=== PATIENT | male | born 1995 | race Caucasian/White ===

== ENCOUNTER 2019-02-28 20:09 | Emergency (ER) | payer OTHER ==
[2019-02-28 20:20] VITALS: BP 122/69; PULSE 70; RESP 18; TEMP 98.6
--- NOTE | 2019-02-28 20:45 | XR ---
EXAMINATION TYPE: XR knee complete LT DATE OF EXAM: 02/28/2019 COMPARISON: NONE HISTORY: Knee pain TECHNIQUE: 3 views FINDINGS: I see no fracture nor dislocation. Joint spaces are normal. There is no sign of a knee join t effusion. IMPRESSION: Negative left knee exam.
--- NOTE | 2019-02-28 21:08 | ED ---
General Adult HPI - General Chief complaint: Extremity Injury, Lower Stated complaint: Lft Knee Injury Time Seen by Provider: 02/28/19 20:23 Source: patient Mode of arrival: ambulatory - History of Present Illness Initial comments: Patient is a 23-year-old male presents emergency Department with left knee pain. Patient reports yesterday he was pulling a piece of metal when he slipped on the grass and the metal hit the medial aspect of his left knee. Patient reports tenderness in the medial aspect of the knee but denies any numbness or tingling. She has full range of motion although pain is exacerbated with knee flexion. Patient reports the pain has improved since yesterday but is still persistent. Patient reports the pain is a 2 and constant. She denies taking medication to alleviate the pain. Review of Systems ROS Statement: Those systems with pertinent positive or pertinent negative responses have been documented in the HPI. ROS Other: All systems not noted in ROS Statement are negative. Past Medical History Additional Past Medical History / Comment(s): denies Additional Past Surgical History / Comment(s): denies Past Psychological History: No Psychological Hx Reported Smoking Status: Never smoker Past Alcohol Use History: None Reported, Occasional Past Drug Use History: None Reported General Exam - General Exam Comments Initial Comments: General: Well-developed well-nourished distress HEENT: Normocephalic/atraumatic, PERLL, pharynx erythema, swallowing well, EAC no erythema, no exudates, TM clear, no cervical lymph nodes Neck: Supple, nontender, trachea midline Chest/Lungs: Normal respirations, no signs of respiratory distress clear to auscultation bilaterally no wheezes, rales, rhonchi Cardiac: Regular rate and rhythm, normal S1-S2, no murmurs rubs or gallops Abdomen/GI: Soft nontender, bowel sounds equal or quadrant x4, no guarding, no rebound no CVA tenderness Musculoskeletal: Mild tenderness on the medial aspect of the left knee with palpation. Pain with knee flexion, full range of motion, no edema, strength equal bilaterally, +2 dorsalis pedis and posterior tibialis, bilaterally. Skin: Warmth, no rashes or lesions, no cyanosis or diaphoresis Neurologic: AAO x 3, CN 2-12 intact, Psychiatric: Mood and affect normal, judgment normal Course Vital Signs 02/28/19 20:17 Temperature 98.6 F Pulse Rate 70 Respiratory 18 Rate Blood Pressure 122/69 O2 Sat by Pulse 98 Oximetry Medical Decision Making - Medical Decision Making Patient is a 23-year-old male presents emergency Department with left knee pain. X-ray of the left knee is negative for acute fracture or dislocations. At this point I suspect the patient has suffered soft tissue injury to the medial aspect of the left knee patient advised to alternate between Tylenol and ibuprofen for pain control. Patient advised to obtain a knee brace. Patient advised to use cold compress to minimize swelling. Case discussed with physician. Disposition Clinical Impression: Knee contusion Disposition: HOME SELF-CARE Condition: Stable Instructions (If sedation given, give patient instructions): Knee Sprain (ED) Additional Instructions: Please wear a brace on left knee. Alternate between Tylenol and ibuprofen for pain control. Please follow with orthopedics. Please return to emergency department if symptoms worsen. Is patient prescribed a controlled substance at d/c from ED?: No Referrals: Alex Coe MD [Primary Care Provider] - 1-2 days Apolinar Villalobos DO [Doctor of Osteopathic Medicine] - 1-2 days Time of Disposition: 21:07
== END 2019-02-28 21:17 | disposition home or self-care (01) ==
LOC: EC 20:09
DX: S80.02XA Contusion of left knee, initial encounter (principal); W01.198A Fall on same level from slipping, tripping and stumbling with subsequent striking against other object, initial encounter; Y93.89 Activity, other specified
CPT/HCPCS: 99283

== ENCOUNTER → 2019-05-16 | Outpatient (CLI) | payer OTHER ==
[2019-05-16 15:03] LABS: Basophils % (A) 1 %; Eosinophils # (A) 0.2 k/uL (0-0.7); Eosinophils % (A) 5 %; HGB 16.3 gm/dL (13.0-17.5); Lymphocytes # (A) 1.9 k/uL (1.0-4.8); Lymphocytes % (A) 40 %; MCH 29.1 pg (25.0-35.0); MCV 85.5 fL (80.0-100.0); Mean Platelet Volume 6.7; Monocytes # (A) 0.3 k/uL (0-1.0); Monocytes % (A) 6 %; Neutrophils # (A) 2.2 k/uL (1.3-7.7); Neutrophils % (A) 46 %; Platelet Count 250 k/uL (150-450); RBC 5.62 m/uL (4.30-5.90); RDW 14.3 % (11.5-15.5); WBC 4.8 k/uL (3.8-10.6)
[2019-05-16 18:43] LABS: ALT 29 U/L (10-49); AST 29 U/L (14-35); African American GFR (CKD) 124.1 (60.0-200.0); Calcium 9.9 mg/dL (8.7-10.3); Carbon Dioxide 27.6 mmol/L (21.6-31.8); Chloride 104 mmol/L (96-109); Chol/HDL Ratio 3.14; Cholesterol 160 mg/dL (0-200); Glucose 85 mg/dL (70-110); Potassium 4.5 mmol/L (3.5-5.5); Sodium 138 mmol/L (135-145); Triglycerides <50.0 mg/dL (0.0-149.0); VLDL Calculation 9.98 mg/dL (5.00-40.00)
== END | disposition home or self-care (01) ==
LOC: LABWHC1 13:52
PROVIDERS: ATTEND Family Medicine
DX: Z00.00 Encounter for general adult medical examination without abnormal findings (principal)
CPT/HCPCS: 36415; 80048; 80061; 84439; 84443; 84450; 84460; 85025; 86800

== ENCOUNTER 2023-01-07 14:00 | Emergency (ER) | payer BC, OTHER ==
[2023-01-07 14:13] VITALS: BP 112/68; PULSE 73; RESP 16; TEMP 97.9
[2023-01-07 14:42] LABS: Appearance,Urine Clear (Clear); Bilirubin,Urine Negative (Negative); Blood,Urine Negative (Negative); Color,Urine Yellow; Glucose,Urine (UA) Negative (Negative); Ketones,Urine Negative (Negative); Leukocyte Esterase,Urine Negative (Negative); Nitrite,Urine Negative (Negative); PH, Urine 6.5 (5.0-8.0); Protein,Urine Negative (Negative); Specific Gravity,Urine 1.019 (1.001-1.035); Urobilinogen,Urine <2.0 mg/dL (<2.0)
[2023-01-07 14:47] LABS: African American GFR (CKD) >90 (>60 ml/min/1.73 sqM); Anion Gap 10 mmol/L; Blood Urea Nitrogen 14 mg/dL (9-20); Calcium 9.9 mg/dL (8.4-10.2); Carbon Dioxide 30 mmol/L (22-30); Chloride 100 mmol/L (98-107); Glucose 89 mg/dL (74-99); Non-African American GFR(CKD) >90 (>60 ml/min/1.73 sqM); Potassium 4.5 mmol/L (3.5-5.1); Prothrombin Time 10.3 sec (9.0-12.0); Sodium 140 mmol/L (137-145)
[2023-01-07 14:57] LABS: Basophils % (A) 1 %; Eosinophils # (A) 0.2 k/uL (0-0.7); Eosinophils % (A) 4 %; HCT 46.2 % (39.0-53.0); HGB 16.2 gm/dL (13.0-17.5); Lymphocytes # (A) 2.2 k/uL (1.0-4.8); Lymphocytes % (A) 37 %; MCV 82.9 fL (80.0-100.0); Mean Platelet Volume 6.7; Monocytes # (A) 0.4 k/uL (0-1.0); Monocytes % (A) 6 %; Neutrophils # (A) 2.9 k/uL (1.3-7.7); Neutrophils % (A) 50 %; Platelet Count 304 k/uL (150-450); RBC 5.57 m/uL (4.30-5.90); RDW 12.4 % (11.5-15.5); WBC 5.8 k/uL (3.8-10.6)
--- NOTE | 2023-01-07 15:17 | XR ---
EXAMINATION TYPE: XR chest 1V DATE OF EXAM: 01/07/2023 COMPARISON: None INDICATION: Presurgical clearance TECHNIQUE: Single frontal view of the chest is obtained. FINDINGS: The heart size is normal. The pulmonary vasculature is normal. The lungs are clear. IMPRESSION: 1. No acute pulmonary process.
--- NOTE | 2023-01-07 15:18 | ED ---
General Adult HPI - General Chief complaint: Recheck/Abnormal Lab/Rx Stated complaint: BLOODWORK Time Seen by Provider: 01/07/23 14:19 Source: patient Mode of arrival: ambulatory Limitations: no limitations - History of Present Illness Initial comments: Patient is a 27-year-old male requesting lab work for surgery clearance. Patient has surgery scheduled with Dr. Hope for Sunday. Patient does not have a PCP. He states that he went to the outpatient lab to have labs drawn however they were closed and directed him here to the ER. He has no complaints at this time. - Related Data Allergies Allergy/AdvReac Type Severity Reaction Status Date / Time No Known Allergies Allergy Verified 01/07/23 14:13 Review of Systems ROS Statement: Those systems with pertinent positive or pertinent negative responses have been documented in the HPI. ROS Other: All systems not noted in ROS Statement are negative. Past Medical History Additional Past Medical History / Comment(s): chronic back pain Past Surgical History: No Surgical Hx Reported Additional Past Surgical History / Comment(s): denies Past Psychological History: No Psychological Hx Reported Smoking Status: Never smoker Past Alcohol Use History: None Reported, Occasional Past Drug Use History: None Reported General Exam Limitations: no limitations General appearance: alert, in no apparent distress Head exam: Present: atraumatic, normocephalic, normal inspection Eye exam: Present: normal appearance, EOMI. Absent: scleral icterus, periorbital swelling Neck exam: Present: normal inspection, full ROM Respiratory exam: Absent: respiratory distress Extremities exam: Present: normal inspection Neurological exam: Present: alert, oriented X3, CN II-XII intact Psychiatric exam: Present: normal affect, normal mood Skin exam: Present: warm, dry, intact, normal color. Absent: rash Course Vital Signs 01/07/23 14:11 Temperature 97.9 F Pulse Rate 73 Respiratory 16 Rate Blood Pressure 112/68 O2 Sat by Pulse 98 Oximetry Medical Decision Making - Medical Decision Making Was pt. sent in by a medical professional or institution ([facility], [employer] [facility], urgent care, hospital, or long term...) When possible be specific @ -No Did you speak to anyone other than the patient for history (EMS, parent, family, police, friend...)? What history was obtained from this source @ -No Did you review nursing and triage notes (agree or disagree)? Why? @ -I reviewed and agree with nursing and triage notes Were old charts reviewed (outside hosp., previous admission, EMS record, old EKG, old radiological studies, urgent care reports/EKG's, long term records)? Report findings @ -No old charts were reviewed Differential Diagnosis (chest pain, altered mental status, abdominal pain women, abdominal pain men, vaginal bleeding, weakness, fever, dyspnea, syncope, headache, dizziness, GI bleed, back pain, seizure, CVA, palpatations, mental health, musculoskeletal)? @ -not applicable EKG interpreted by me (3pts min.). @ -As above X-rays interpreted by me (1pt min.). @ -None done CT interpreted by me (1pt min.). @ -None done U/S interpreted by me (1pt. min.). @ -None done What testing was considered but not performed or refused? (CT, X-rays, U/S, labs)? Why? @ -None What meds were considered but not given or refused? Why? @ -None Did you discuss the management of the patient with other professionals (professionals i.e. , PA, [employer], lab, RT, psych nurse, medical social consultant, mine engineering supervisor, teacher, information assurance officer, supervisor case loading)? Give summary @ -No Was smoking cessation discussed for >3mins.? @ -No Was critical care preformed (if so, how long)? @ -No Were there social determinants of health that impacted care today? How? (Homelessness, low income, unemployed, alcoholism, drug addiction, transportation, low edu. Level, literacy, decrease access to med. care, prison, rehab)? @ -No Was there de-escalation of care discussed even if they declined (Discuss DNR or withdrawal of care, Hospice)? DNR status @ -No What co-morbidities impacted this encounter? (DM, HTN, Smoking, COPD, CAD, Cancer, CVA, ARF, Chemo, Hep., AIDS, mental health diagnosis, sleep apnea, morbid obesity)? @ -None Was patient admitted / discharged? Hospital course, mention meds given and route, prescriptions, significant lab abnormalities, going to OR and other pertinent info. @ -Patient is a 27-year-old male presenting requesting pre-op lab work. He has no complaints. Patient [facility] CBC, coags, BMP, and urine are unremarkable. Chest x-ray shows no acute process. Patient was instructed to follow-up with his surgeon. He is agreeable with this plan. I discussed this case with my attending Dr. Shaw Undiagnosed new problem with uncertain prognosis? @ -No Drug Therapy requiring intensive monitoring for toxicity (Heparin, Nitro, Insulin, Cardizem)? @ -No Were any procedures done? @ -No Diagnosis/symptom? @ -encounter for lab work Acute, or Chronic, or Acute on Chronic? @ -Acute Uncomplicated (without systemic symptoms) or Complicated (systemic symptoms)? @ -Uncomplicated Side effects of treatment? @ -No Exacerbation, Progression, or Severe Exacerbation? @ -No Poses a threat to life or bodily function? How? (Chest pain, [place], [place], pneumonia, PE, COPD, DKA, ARF, appy, cholecystitis, CVA, Diverticulitis, Homicidal, Suicidal, threat to staff... and all critical care pts) @ -No - Lab Data Result diagrams: 01/07/23 14:28 01/07/23 14:28 Lab Results 01/07/23 01/07/23 01/07/23 Range/Units 14:28 14:28 14:28 WBC 5.8 (3.8-10.6) k/uL RBC 5.57 (4.30-5.90) m/uL Hgb 16.2 (13.0-17.5) gm/dL Hct 46.2 (39.0-53.0) % MCV 82.9 (80.0-100.0) fL MCH 29.0 (25.0-35.0) pg MCHC 35.0 (31.0-37.0) g/dL RDW 12.4 (11.5-15.5) % Plt Count 304 (150-450) k/uL MPV 6.7 Neutrophils % 50 % Lymphocytes % 37 % Monocytes % 6 % Eosinophils % 4 % Basophils % 1 % Neutrophils # 2.9 (1.3-7.7) k/uL Lymphocytes # 2.2 (1.0-4.8) k/uL Monocytes # 0.4 (0-1.0) k/uL Eosinophils # 0.2 (0-0.7) k/uL Basophils # 0.0 (0-0.2) k/uL PT 10.3 (9.0-12.0) sec INR 1.0 (<1.2) APTT 25.0 (22.0-30.0) sec Sodium (137-145) mmol/L Potassium (3.5-5.1) mmol/L Chloride (98-107) mmol/L Carbon Dioxide (22-30) mmol/L Anion Gap mmol/L BUN (9-20) mg/dL Creatinine (0.66-1.25) mg/dL Est GFR (CKD-EPI)AfAm (>60 ml/min/1.73 sqM) Est GFR (CKD-EPI)NonAf (>60 ml/min/1.73 sqM) Glucose (74-99) mg/dL Calcium (8.4-10.2) mg/dL Urine Color Yellow Urine Appearance Clear (Clear) Urine pH 6.5 (5.0-8.0) Ur Specific [place] 1.019 (1.001-1.035) Urine Protein Negative (Negative) Urine Glucose (UA) Negative (Negative) Urine Ketones Negative (Negative) Urine Blood Negative (Negative) Urine Nitrite Negative (Negative) Urine Bilirubin Negative (Negative) Urine Urobilinogen <2.0 (<2.0) mg/dL Ur Leukocyte Esterase Negative (Negative) 01/07/23 Range/Units 14:28 WBC (3.8-10.6) k/uL RBC (4.30-5.90) m/uL Hgb (13.0-17.5) gm/dL Hct (39.0-53.0) % MCV (80.0-100.0) fL MCH (25.0-35.0) pg MCHC (31.0-37.0) g/dL RDW (11.5-15.5) % Plt Count (150-450) k/uL MPV Neutrophils % % Lymphocytes % % Monocytes % % Eosinophils % % Basophils % % Neutrophils # (1.3-7.7) k/uL Lymphocytes # (1.0-4.8) k/uL Monocytes # (0-1.0) k/uL Eosinophils # (0-0.7) k/uL Basophils # (0-0.2) k/uL PT (9.0-12.0) sec INR (<1.2) APTT (22.0-30.0) sec Sodium 140 (137-145) mmol/L Potassium 4.5 (3.5-5.1) mmol/L Chloride 100 (98-107) mmol/L Carbon Dioxide 30 (22-30) mmol/L Anion Gap 10 mmol/L BUN 14 (9-20) mg/dL Creatinine 0.93 (0.66-1.25) mg/dL Est GFR (CKD-EPI)AfAm >90 (>60 ml/min/1.73 sqM) Est GFR (CKD-EPI)NonAf >90 (>60 ml/min/1.73 sqM) Glucose 89 (74-99) mg/dL Calcium 9.9 (8.4-10.2) mg/dL Urine Color Urine Appearance (Clear) Urine pH (5.0-8.0) Ur Specific [place] (1.001-1.035) Urine Protein (Negative) Urine Glucose (UA) (Negative) Urine Ketones (Negative) Urine Blood (Negative) Urine Nitrite (Negative) Urine Bilirubin (Negative) Urine Urobilinogen (<2.0) mg/dL Ur Leukocyte Esterase (Negative) Disposition Clinical Impression: Encounter for laboratory test Disposition: HOME SELF-CARE Condition: Good Additional Instructions: Follow-up with surgeon. Is patient prescribed a controlled substance at d/c from ED?: No Referrals: None,Stated [Primary Care Provider] - 1-2 days Time of Disposition: 15:18
== END 2023-01-07 15:40 | disposition home or self-care (01) ==
LOC: EC 14:00
DX: Z01.812 Encounter for preprocedural laboratory examination (principal)
CPT/HCPCS: 36415; 71045; 80048; 81003; 85025; 85610; 85730; 99283